=== PATIENT | male | born 1970 | race Caucasian/White ===

== ENCOUNTER 2022-06-14 03:21 | Emergency (ER) | payer OTHER ==
[2022-06-14] MEDS ORDERED: BACITRACIN ZINC OINT 1 PACKET TOP STA (04:35)
[2022-06-14] MEDS ORDERED: TETANUS/DIPHTHERIA/PERTUSSIS 0.5 ML SYRINGE IM ONE (04:35)
[2022-06-14] MEDS ORDERED: FLUoxetine 10 MG CAPSULE PO STA (05:27)
[2022-06-14] MEDS ORDERED: QUEtiapine 25 MG TABLET PO STA (05:28)
[2022-06-14] MEDS ORDERED: FLUoxetine 10 MG CAPSULE PO ONE (05:43)
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
[2022-06-14 07:04] VITALS: BP 106/68
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
== END 2022-06-14 07:04 | disposition home or self-care (01) ==
LOC: ED 03:21
DX: S09.90XA Unspecified injury of head, initial encounter (principal); T14.8XXA Other injury of unspecified body region, initial encounter; W03.XXXA Other fall on same level due to collision with another person, initial encounter; Y93.89 Activity, other specified; Y92.89 Other specified places as the place of occurrence of the external cause
CPT/HCPCS: 70450; 72125; 90471; 90715; 99283; 99284; A9270